=== PATIENT | female | born 1990 | race Caucasian/White ===

== ENCOUNTER → 2016-08-04 | Outpatient (CLI) | payer OTHER | END | disposition home or self-care (01) | LOC: EDBD → C.PAPS 09:50 | PROVIDERS: ATTEND Obstetrics & Gynecology | DX: Z12.4 Encounter for screening for malignant neoplasm of cervix (principal) ==

== ENCOUNTER → 2016-09-11 | Outpatient (CLI) | payer OTHER ==
[~2016-09-11] VITALS: Ht 162.6 cm; Wt 85.5 kg
[2016-09-11 14:03] VITALS: BP 114/78; PULSE 53; Ht 162.6 cm; Wt 85.5 kg
== END | disposition home or self-care (01) ==
LOC: C.NEUR 13:32
PROVIDERS: ATTEND Internal Medicine Pulmonary Disease
DX: G47.33 Obstructive sleep apnea (adult) (pediatric) (principal); F41.9 Anxiety disorder, unspecified

== ENCOUNTER → 2016-09-23 | Outpatient (CLI) | payer OTHER ==
--- NOTE | 2016-09-27 23:34 | POLYSOMNOGRAPH REPORT ---
CLINICAL DATA: A 26-year-old female with a BMI of 32.3, referred by Dr. Garcia for evaluation of sleep apnea. The patient has sleep apnea and is being treated with an oral appliance. This HSAT is being done to see if her oral appliance is effective. The study was done with her oral appliance in place. SLEEP ARCHITECTURE: Total recording time was 10 hours. Patient estimated sleep time and patient monitoring time was 7.8 hours. RESPIRATORY DATA: There was no significant sleep apnea/hypopnea noted. The INDU was 1.9. There were 3 obstructive, 1 mixed, and 3 central apneic episodes. There were 3 hypopneic episodes recorded. The longest respiratory event was 26 seconds. OXIMETRY DATA: No significant hypoxemia was seen. Oxygen maureen was 88%. Mean saturation was 94%. Time below 89% was 0 minutes. HEART RATE DATA: Heart rates ranged from 44-53 beats per minute. SNORING DATA: Snoring was recorded intermittently throughout the night. IMPRESSION: No evidence of clinically significant sleep apnea/hypopnea with this patient's oral appliance. Her sleep apnea is corrected with her current therapy. RECOMMENDATIONS: The patient should continue use of her oral appliance. [facility]
== END | disposition home or self-care (01) ==
LOC: C.NEUR 10:05
PROVIDERS: ATTEND Internal Medicine Pulmonary Disease
DX: G47.33 Obstructive sleep apnea (adult) (pediatric) (principal); F41.9 Anxiety disorder, unspecified

== ENCOUNTER → 2016-10-23 | Outpatient (CLI) | payer OTHER ==
[~2016-10-23] VITALS: Ht 162.6 cm; Wt 87.2 kg
[2016-10-23 13:36] VITALS: BP 113/71; PULSE 56; Ht 162.6 cm; Wt 87.2 kg
== END | disposition home or self-care (01) ==
LOC: C.NEUR 13:15
PROVIDERS: ATTEND Internal Medicine Pulmonary Disease
DX: G47.33 Obstructive sleep apnea (adult) (pediatric) (principal)

== ENCOUNTER → 2017-09-03 | Outpatient (CLI) | payer OTHER ==
[2017-09-03 14:09] LABS: BASO % 0.7 %; BASO ABS # 0.04 K/uL (0-0.2); EOS % 1.7 %; HEMATOCRIT 41.6 % (37-47); IG# 0.01 K/uL (0.00-0.02); LYMPH ABS # 1.95 K/uL (1.2-3.4); MEAN CELL VOLUME 85.4 fL (80-100); MEAN CORPUSCULAR HEMOGLOBIN 28.7 pg (25-34); MEAN CORPUSCULAR HGB CONC 33.7 g/dl (32-36); MEAN PLATELET VOLUME 9.3 fL (7.4-10.4); MONO % 9.1 %; MONO ABS # 0.52 K/uL (0.11-0.59); NEUT % 54.3 %; NEUT ABS # 3.12 K/uL (1.4-6.5); PLATELET COUNT 219 K/uL (130-400); RED CELL DISTRIBUTION WIDTH CV 12.2 % (11.5-14.5); RED CELL DISTRIBUTION WIDTH SD 38.2 fL (36.4-46.3); WHITE BLOOD COUNT 5.74 K/uL (4.8-10.8)
[2017-09-03 14:15] LABS: ALBUMIN 3.9 gm/dl (3.4-5.0); ALKALINE PHOSPHATASE 42 U/L (45-117); ALT/SGPT 24 U/L (12-78); AST/SGOT 17 U/L (15-37); BLOOD UREA NITROGEN 15 mg/dl (7-18); CALCIUM 8.9 mg/dl (8.5-10.1); CARBON DIOXIDE 25 mmol/L (21-32); CREATININE 0.92 mg/dl (0.60-1.20); GLUCOSE 85 mg/dl (70-99); POTASSIUM 4.2 mmol/L (3.5-5.1); SODIUM 136 mmol/L (136-145); TOTAL PROTEIN 8.1 gm/dl (6.4-8.2)
[2017-09-03 14:25] LABS: CHOLESTEROL 272 mg/dl (0-200); LDL CHOLESTEROL CALCULATED 190 mg/dl
== END | disposition home or self-care (01) ==
LOC: C.LABBC 11:13
PROVIDERS: ATTEND Physician Assistant Medical
DX: E78.5 Hyperlipidemia, unspecified (principal); G47.33 Obstructive sleep apnea (adult) (pediatric); R00.2 Palpitations; R53.83 Other fatigue

== ENCOUNTER → 2018-03-08 | Outpatient (CLI) | payer OTHER | END | disposition home or self-care (01) | LOC: C.LAB1850 08:31 | PROVIDERS: ATTEND Nurse Practitioner Adult Health | DX: R39.9 Unspecified symptoms and signs involving the genitourinary system (principal) ==